=== PATIENT | female | born 1965 | race Hispanic/Latino ===

== ENCOUNTER → 2018-01-11 | Outpatient (CLI) | payer OTHER ==
[~2018-01-11] MED LIST: IOPAMIDOL 370 MG/ML 200 ML INFUS..BTL INJ ONE; LOSARTAN POTASS25 MG PO; SODIUM CHLORIDE 0.9% 50ML 50 ML ONE; [UNRECOGNIZED DRUG - REMARK] PO
[2018-01-11 08:04] LABS: BLOOD UREA NITROGEN 10 mg/dL (7-26); BUN/CREATININE RATIO 14 (6-25); CREATININE, SERUM 0.69 mg/dL (0.57-1.11); EST GLOMERULAR FILTRATION RATE > 60 ML/MIN (60-)
--- NOTE | 2018-01-11 11:41 | Diagnostic Imaging Report ---
PROCEDURE: CT ABDOMEN \T\ PELVIS W/WO CONTRAST TECHNIQUE: The abdomen and pelvis were scanned utilizing a multidetector helical scanner from the diaphragm to the lesser trochanter before and after the IV administration of 100 cc of Isovue 370 and the oral administration of water. Coronal and sagittal multiplanar reformations were obtained. COMPARISON: None. INDICATIONS: RIGHT SIDE ABDOMEN PAIN FINDINGS: LOWER THORAX: Unremarkable. HEPATOBILIARY: Moderate diffuse hepatic steatosis. Normal size and contour. No focal lesions. No intra-or extrahepatic biliary ductal dilation. Gallbladder is unremarkable. SPLEEN: No splenomegaly. PANCREAS: No focal masses or ductal dilatation. ADRENALS: No adrenal nodules. 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 7-8 mm obstructing calculus in the distal aspect of the right ureter (series 3, image 147, sagittal image 68, coronal image 58), which results in mild hydroureter and mild hydronephrosis of the upper pole moiety. No hydronephrosis in the lower pole moiety. No other renal or ureteral calculi. No solid enhancing masses. No significant perinephric stranding. Left: No renal or ureteral calculi, hydronephrosis, or obstruction. No contour solid, enhancing lesions. No cystic lesions. No significant perinephric stranding. PELVIC ORGANS/BLADDER: Bladder shows no focal lesions or wall thickening. 2.1 x 1.8 cm right ureterocele (series 5, image 80). Mild to moderate amount of fluid in the endometrial cavity. Multiple pelvic phleboliths. No adnexal masses. PERITONEUM / RETROPERITONEUM: No free air or fluid. LYMPH NODES: No lymphadenopathy. VESSELS: Unremarkable. GI TRACT: No bowel dilation or evidence of obstruction. No pericolonic inflammatory changes. BONES AND SOFT TISSUES: No aggressive lytic lesion. Soft tissues are grossly unremarkable. IMPRESSION: 1. 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 7-8 mm obstructing calculus in the distal aspect of the upper pole right ureter, which results in mild hydroureter and mild hydronephrosis of the upper pole moiety. No hydronephrosis or hydroureter in the lower pole moiety. 2. No other renal or ureteral calculi. No left hydronephrosis or obstruction. 3. Right ureterocele. 4. Moderate diffuse hepatic steatosis. No focal lesions. Rowdy Vega M.D. Dictated by: Rowdy Vega M.D. on 01/11/2018 at 11:43 Electronically approved by: Rowdy Vega M.D. on 01/11/2018 at 11:43
== END ==
LOC: CT 07:10
PROVIDERS: ATTEND Internal Medicine
DX: R10.9 Unspecified abdominal pain (principal); N20.0 Calculus of kidney
CPT/HCPCS: 36415; 74178; 82565; 84520; Q9967

== ENCOUNTER → 2019-12-13 | Day surgery (SDC) | payer OTHER ==
[~2019-12-13] MED LIST changes: +ATORVASTATIN CA20 MG PO; +B&O 60MG R/S 60 MG SUPP PR ONE; +CEFTRIAXONE SOD 1 GM/NS 50 ML 50 ML IV ONE; +DEXAMETHASONE SOD PHOS INJ 4 MG/ML VIAL ONE; +EPHEDRINE SULFATE INJ 50 MG/ML VIAL ONE; +FENTANYL CITRATE/PF 100MCG/2 ML INJ ONE; +IOPAMIDOL 300MG/ML 50ML INFUS..BTL IV ONE; -IOPAMIDOL 370 MG/ML 200 ML INFUS..BTL INJ ONE; +LIDOCAINE HCL 2% LOCAL INJ 5 ML SDV VIAL INJ ONE; +MIDAZOLAM HCL 2 MG/2 ML VIAL ONE; +ONDANSETRON HCL INJ 2MG/ML 2ML 2 MG/ML VIAL ONE; +PANTOPRAZOLE SO40 MG PO; +PROPOFOL IV EMULSION 10 MG/ML 20 ML VIAL ONE; +SEVOFLURANE INHAL SOLN 250 ML PEN BTL ONE; -SODIUM CHLORIDE 0.9% 50ML 50 ML ONE
[2019-12-13 09:55] VITALS: BP 129/85
--- NOTE | 2019-12-13 11:39 | Operative Report ---
DATE OF PROCEDURE: 12/13/2019 SURGEON: Serge Washington MD PREOPERATIVE DIAGNOSES: 1. 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 2. History of urolithiasis. 3. Two separate right-sided indwelling ureteral stents. POSTOPERATIVE DIAGNOSES: 1. 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 2. History of urolithiasis. 3. Two separate right-sided indwelling ureteral stents. 4. Grade 2 cystocele. 5. Grade 1 rectocele. 6. Grade 1 uterine prolapse. 7. Urethral hypermobility. 8. Mildly atrophic (senile) vaginitis. OPERATIONS PERFORMED: 1. Cystourethroscopy with complicated removal of two separate right-sided indwelling ureteral stents to the ureteral duplication (separate procedure performed for the diagnosis of stents done with separate scope). 2. Right ureteroscopy to evaluate the upper pole moiety due to the prior ureterocele management. 3. A separate right ureteroscopy to evaluate the lower pole moiety due to the patient's prior history of urolithiasis. 4. Urological services with supervision and interpretation of ureteroscopy, no radiologist present. 5. Interpretation of retrograde ureteropyelography, no radiologist present. 6. Supervision of fluoroscopy, no radiologist present. 7. Pelvic examination under anesthesia. ANESTHESIA: General. COMPLICATIONS: None. CLINICAL SUMMARY: Lurdes Foote is a 54-year-old woman who had 9 mm urolithiasis. There was an obstructing right ureterocele. She underwent ureterocele excision as well as ureteral stone management. 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 She is brought to the operating room today to remove her stents and hopefully render her stent free and stone free. The patient understands the risks of bleeding, infection, injury to adjacent structures, need for additional procedures, and elected to proceed. This procedure is done during the COVID emergency because it is not elective. The patient has indwelling stents, but they are causing her discomfort. The patient has a history of stones and with foreign bodies present, she is at high risk of recurrent urolithiasis. We are performing this procedure during the COVID emergency due to the fact that the patient has active ongoing discomfort and has required narcotic pain medications for its control as well as her risk of damaging her kidney and having additional complications due to the risk of recurrent urolithiasis. The patient also understands that there is additional risk to leaving her house during the perry virus outbreak, but that risk is greatly outweighed by the benefits of rendering her stone free and stent free. OPERATIVE PROCEDURE IN DETAIL: Informed consent was verified. Lurdes Foote was properly identified, taken to the operating room, placed on the cystoscopy table in supine position. Anesthesia was uneventfully begun. The patient was then carefully and gently repositioned in a dorsal lithotomy position with all pressure points well padded. Her genitalia were prepared and draped in usual sterile fashion. The 21-[place] cystoscope sheath with obturator in place was atraumatically inserted in the patient's urethra and bladder was drained. Panendoscopy of the urinary bladder revealed no suspicious mucosal lesions, no tumors, no stones, no diverticula. There were two stents emerging from both right-sided ureteral orifices. A guidewire was then placed into the upper pole moiety. The stent was then grasped completely, removed, and then discarded. The semi-rigid ureteroscopy was then performed. We inserted the ureteroscope under direct vision alongside the guidewire. We examined the location where there was a previous ureterocele. The ureterocele was gone. The right-sided upper pole ureter was capacious and open and there was no evidence of distal obstruction at this time. We went up to the distal portion of the ureter atraumatically proving there was no stone strictures and no suspicious lesions. The flexible ureteroscope was then placed over the guidewire and guided to the level of the patient's kidney. Panendoscopy of the intrarenal collecting system revealed no tumors, no stones, no diverticula. No Kwan's plaques were present. There were no suspicious lesions. The ureter was re-examined in its entirety, exhibited no stones, no strictures and no suspicious lesions. An identical maneuver was performed for the lower pole moiety. Ureteroscopy in this case did not exhibit a capacious ureter, it exhibited delicate ureter. There were no Kwan's plaques noted, and there were no suspicious lesions on this side either. Interpretation of retrograde ureteropyelography contrast was instilled in a retrograde fashion on the right-hand side for both moieties. There was no longer any hydronephrosis present. There were no suspicious lesions. There was no extravasation. There was no obstruction. Unobstructed drainage was observed fluoroscopically in both moieties. The patient's bladder was drained, the cystoscope was withdrawn. Pelvic examination under anesthesia revealed mildly atrophic vaginitis. There was urethral hypermobility. There was a grade 2 cystocele, grade 1 rectocele. There was minimal grade 1 uterine prolapse. No abnormal palpable pelvic masses could be appreciated. There were no obvious mucosal lesions. A belladonna and opium suppository was placed, and the patient was uneventfully reversed from anesthesia and taken to recovery room in stable condition. There were no complications to the procedure. The patient tolerated the procedure well. Plans will be to follow up on the patient's previously ordered nuclear medicine renal scan and follow the patient up in about a month at which point in time, we will begin her metabolic stone workup. We will also discuss with the patient long-term management for her ongoing incontinence as well as long-term followup for her undoubted to occur right-sided vesicoureteric reflux into at least the upper pole moiety. Serge Washington MD [place]/[facility] /[id number] cc: Jaja Beltran MD
== END | disposition home or self-care (01) ==
LOC: OR 05:42
PROVIDERS: ATTEND Urology
DX: N28.89 Other specified disorders of kidney and ureter (principal); Q62.5 Duplication of ureter; Z46.6 Encounter for fitting and adjustment of urinary device; Z87.442 Personal history of urinary calculi; N81.6 Rectocele; N81.2 Incomplete uterovaginal prolapse; N95.2 Postmenopausal atrophic vaginitis; N39.0 Urinary tract infection, site not specified; R35.1 Nocturia; N39.3 Stress incontinence (female) (male); N35.92 Unspecified urethral stricture, female; N81.89 Other female genital prolapse; N36.41 Hypermobility of urethra; I10 Essential (primary) hypertension; K21.9 Gastro-esophageal reflux disease without esophagitis
CPT/HCPCS: 52351; 74420; J0696; J1100; J2001; J2250; J2405; J3010

== ENCOUNTER → 2019-12-18 | Outpatient (CLI) | payer OTHER ==
[~2019-12-18] MED LIST changes: -B&O 60MG R/S 60 MG SUPP PR ONE; -CEFTRIAXONE SOD 1 GM/NS 50 ML 50 ML IV ONE; -DEXAMETHASONE SOD PHOS INJ 4 MG/ML VIAL ONE; -EPHEDRINE SULFATE INJ 50 MG/ML VIAL ONE; -FENTANYL CITRATE/PF 100MCG/2 ML INJ ONE; +FUROSEMIDE INJ 10 MG/ML 4 ML VIAL ONE; -IOPAMIDOL 300MG/ML 50ML INFUS..BTL IV ONE; -LIDOCAINE HCL 2% LOCAL INJ 5 ML SDV VIAL INJ ONE; -MIDAZOLAM HCL 2 MG/2 ML VIAL ONE; -ONDANSETRON HCL INJ 2MG/ML 2ML 2 MG/ML VIAL ONE; -PROPOFOL IV EMULSION 10 MG/ML 20 ML VIAL ONE; -SEVOFLURANE INHAL SOLN 250 ML PEN BTL ONE
--- NOTE | 2019-12-18 18:38 | Diagnostic Imaging Report ---
Renal Scan with Lasix [place] Clinical information: Orthotopic congenital ureterocele; urolithiasis Technique: Following intravenous administration of 10 mCi of Tc-99m MAG3, dynamic images of the kidneys in the posterior projection were obtained through 40 minutes. Lasix 40 mg was administered intravenously at 10 minutes post injection of the tracer. Report: Left kidney: Perfusion of the left kidney is prompt. The kidney has a normal reniform shape. Extraction of tracer from the blood pool is normal. Clearance of tracer from the renal parenchyma is prompt. The pelvicalyceal system is not dilated. Physiologic pooling of tracer is seen within the pelvicalyceal system. Drainage of tracer from the pelvicalyceal system is prompt and adequate prior to administration of Lasix. No significant stasis of tracer is seen within the left ureter. Right kidney: Perfusion to the right kidney is prompt. The right kidney has a normal reniform shape. The right kidney is slightly larger than the left kidney. Extraction of tracer by the renal parenchyma is normal. Clearance of tracer from the renal parenchyma is prompt. The pelvicalyceal system is not dilated. Physiologic pooling of tracer is seen within the pelvicalyceal system. Drainage of tracer from the pelvicalyceal system is prompt and adequate prior to administration of Lasix. No significant stasis of tracer is seen within the right ureter. Differential renal function: The left kidney contributes 46% of total renal function and the right kidney contributes 54% (normal 43-57%). Impression: 1. The function of the left kidney is generally normal. No hydronephrosis is present. No physiologically significant obstruction of the renal collecting system is present. 2. The function of the right kidney is generally normal. No hydronephrosis is present. No physiologically significant obstruction of the renal collecting system is present. 3. The differential renal function is preserved. Signed by: Dr. Becca Phelan M.D. on 12/18/2019 6:35 PM
== END ==
LOC: NM 09:19
PROVIDERS: ATTEND Urology
DX: Q62.31 Congenital ureterocele, orthotopic (principal)
CPT/HCPCS: 78708; A9562; J1940

== ENCOUNTER → 2020-08-28 | Outpatient (CLI) | payer OTHER ==
[~2020-08-28] MED LIST changes: -FUROSEMIDE INJ 10 MG/ML 4 ML VIAL ONE
== END ==
LOC: MAMMO 09:54
PROVIDERS: ATTEND Internal Medicine
DX: Z12.31 Encounter for screening mammogram for malignant neoplasm of breast (principal)
CPT/HCPCS: 77067